=== PATIENT | female | born 1990 | race Caucasian/White ===

== ENCOUNTER 2018-06-12 04:19 | Emergency (ER) | payer OTHER ==
[~2018-06-12] VITALS: Ht 162.6 cm; Wt 86.4 kg
[2018-06-12] MEDS ORDERED: PredniSONE 20 MG TABLET PO ONE (05:00)
[2018-06-12] MEDS ORDERED: DiphenhydrAMINE HCL 25 MG CAPSULE PO ONE (05:00)
[2018-06-12 05:25] VITALS: BP 128/76
== END 2018-06-12 05:44 | disposition home or self-care (01) ==
LOC: EMS 04:20
DX: L50.9 Urticaria, unspecified (principal); F17.210 Nicotine dependence, cigarettes, uncomplicated
CPT/HCPCS: 99283; J7512

== ENCOUNTER 2018-10-07 21:12 | Emergency (ER) | payer OTHER ==
[~2018-10-07] VITALS: Ht 162.6 cm; Wt 79.5 kg
[2018-10-08 01:08] VITALS: BP 131/85
[2018-10-08 01:33] LABS: APPEARANCE,URINE CLEAR (CLEAR); BILIRUBIN,URINE NEGATIVE (NEGATIVE); GLUCOSE, URINE (UA) NEGATIVE (NEGATIVE); KETONES,URINE NEGATIVE (NEGATIVE); LEUKOCYTE ESTERASE ,URINE NEGATIVE (NEGATIVE); NITRATE,URINE NEGATIVE (NEGATIVE); OCCULT BLOOD,URINE NEGATIVE (NEGATIVE); PROTEIN,URINE NEGATIVE (NEGATIVE)
[2018-10-08 02:08] LABS: INFLUENZA TYPE A NEGATIVE FOR TYPE A (NEGATIVE); INFLUENZA TYPE B NEGATIVE FOR TYPE B (NEGATIVE)
[2018-10-08 03:14] LABS: BASOPHILS % (AUTO) 0.8 % (0.0-2.0); EOSINOPHILS % (AUTO) 1.7 % (1.0-6.0); HEMATOCRIT 36.4 % (36-46); LYMPHOCYTES # (AUTO) 2.7 K/uL (1.0-4.8); LYMPHOCYTES % (AUTO) 26.3 % (22.0-44.0); MEAN CORPUSCULAR HEMOGLOBIN 28.3 pg (26.0-34.0); MEAN CORPUSCULAR VOLUME 86 fL (80-100); MONOCYTES # (AUTO) 0.8 K/uL (0.1-1.0); MONOCYTES % (AUTO) 7.9 % (2.0-9.0); NEUTROPHILS # (AUTO) 6.5 K/uL (1.8-7.7); NEUTROPHILS % (AUTO) 63.3 % (40.0-70.0); PLATELET COUNT (AUTO) 229 K/uL (150-450); RED BLOOD CELL COUNT(AUTO) 4.26 MIL/uL (4.00-5.20)
[2018-10-08 03:27] LABS: ANION GAP 9 mmol/L (8-16); CALCIUM, TOTAL 8.8 mg/dL (8.8-10.5); CARBON DIOXIDE 23 mmol/L (22-29); CHLORIDE 104 mmol/L (98-107); CREATININE 0.58 mg/dL (0.60-1.30); GLOMERULAR FILTR. RATE CALC > 60 mL/min (>60); GLUCOSE,RANDOM 91 mg/dL (70-110); SODIUM SERUM 136 mmol/L (136-145); UREA NITROGEN, BLOOD 9 mg/dL (7-18)
[2018-10-08 03:53] LABS: ALANINE AMINOTRANSFERASE 19 U/L (12-78); ALBUMIN 3.3 g/dL (3.4-5.0); ALKALINE PHOSPHATASE 70 U/L (46-116); ASPARTATE AMINOTRANSFERASE 16 U/L (15-37); BILIRUBIN,TOTAL 0.4 mg/dL (0.1-1.0); HCG,QUANTITATIVE 3798 mIU/mL (0-6); LIPASE 109 U/L (73-393); TOTAL PROTEIN, SERUM 7.1 g/dL (6.4-8.2)
== END 2018-10-08 03:45 | disposition home or self-care (01) ==
LOC: EMS 21:13
DX: O99.511 Diseases of the respiratory system complicating pregnancy, first trimester (principal); O99.331 Smoking (tobacco) complicating pregnancy, first trimester; O26.891 Other specified pregnancy related conditions, first trimester; F17.210 Nicotine dependence, cigarettes, uncomplicated; R10.30 Lower abdominal pain, unspecified; Z3A.08 8 weeks gestation of pregnancy
CPT/HCPCS: 76801; 76817; 87804; 99406

== ENCOUNTER 2018-12-23 07:52 | Emergency (ER) | payer OTHER ==
[~2018-12-23] VITALS: Ht 162.6 cm; Wt 80.9 kg
[2018-12-23] MEDS ORDERED: ACET-2247 PO (07:55)
[2018-12-23] MEDS ORDERED: ONDANSETRON HCL 4 MG/2 ML VIAL IVP ONE (08:30)
[2018-12-23] MEDS ORDERED: MAG HYDROX/AL HYDROX/SIMETH ES 30 ML SUSPENSION UDCUP PO ONE (08:30)
[2018-12-23] MEDS ORDERED: SODIUM CHLORIDE 0.9% 1,000 ML IV ONE (08:30)
[2018-12-23 08:51] LABS: BASOPHILS % (AUTO) 0.4 % (0.0-2.0); HEMATOCRIT 35.5 % (36-46); HEMOGLOBIN 11.4 g/dL (12.0-16.0); LYMPHOCYTES # (AUTO) 1.9 K/uL (1.0-4.8); MEAN CORPUSCULAR HEMOGLOBIN 27.7 pg (26.0-34.0); MEAN CORPUSCULAR HGB CONC 32.2 G/dL (31.0-37.0); MEAN CORPUSCULAR VOLUME 86 fL (80-100); MONOCYTES # (AUTO) 0.5 K/uL (0.1-1.0); MONOCYTES % (AUTO) 6.1 % (2.0-9.0); NEUTROPHILS # (AUTO) 6.3 K/uL (1.8-7.7); NEUTROPHILS % (AUTO) 70.5 % (40.0-70.0); PLATELET COUNT (AUTO) 203 K/uL (150-450); RED BLOOD CELL COUNT(AUTO) 4.13 MIL/uL (4.00-5.20); RED CELL DISTRIBUTION WIDTH 13.5 % (11.5-14.5)
[2018-12-23 09:01] LABS: ANION GAP 9 mmol/L (8-16); CALCIUM, TOTAL 8.6 mg/dL (8.8-10.5); CARBON DIOXIDE 24 mmol/L (22-29); CHLORIDE 105 mmol/L (98-107); CREATININE 0.58 mg/dL (0.60-1.30); GLOMERULAR FILTR. RATE CALC > 60 mL/min (>60); GLUCOSE,RANDOM 88 mg/dL (70-110); POTASSIUM 3.9 mmol/L (3.5-5.1); SODIUM SERUM 138 mmol/L (136-145); UREA NITROGEN, BLOOD 7 mg/dL (7-18)
[2018-12-23 09:27] LABS: ALANINE AMINOTRANSFERASE 19 U/L (12-78); ALBUMIN 2.7 g/dL (3.4-5.0); ALKALINE PHOSPHATASE 55 U/L (46-116); ASPARTATE AMINOTRANSFERASE 17 U/L (15-37); BILIRUBIN,TOTAL 0.3 mg/dL (0.1-1.0); HCG,QUANTITATIVE 14957 mIU/mL (0-6); LIPASE 81 U/L (73-393); TOTAL PROTEIN, SERUM 6.5 g/dL (6.4-8.2)
[2018-12-23 09:35] LABS: APPEARANCE,URINE CLOUDY (CLEAR); BILIRUBIN,URINE NEGATIVE (NEGATIVE); GLUCOSE, URINE (UA) NEGATIVE (NEGATIVE); KETONES,URINE NEGATIVE (NEGATIVE); LEUKOCYTE ESTERASE ,URINE TRACE (NEGATIVE); NITRATE,URINE NEGATIVE (NEGATIVE); OCCULT BLOOD,URINE NEGATIVE (NEGATIVE); PH,URINE 7.5 (5.0-8.0); PROTEIN,URINE NEGATIVE (NEGATIVE); UROBILINOGEN,URINE 0.2 mg/dL (<=1.0)
[2018-12-23 10:02] LABS: BACTERIA,URINE None Seen /HPF (None Seen); RBC,URINE None Seen /HPF (0-2); SQUAMOUS EPITHELIAL CELL,UR Few /LPF (None Seen); WBC,URINE 0-2 /HPF (0-5)
[2018-12-23 10:03] LABS: AMORPHOUS SEDIMENT,UR Few /LPF (None Seen)
[2018-12-23 11:54] VITALS: BP 108/73
== END 2018-12-23 12:04 | disposition home or self-care (01) ==
LOC: EMS 08:08
DX: O21.9 Vomiting of pregnancy, unspecified (principal); O99.332 Smoking (tobacco) complicating pregnancy, second trimester; O26.892 Other specified pregnancy related conditions, second trimester; R10.13 Epigastric pain; Z3A.16 16 weeks gestation of pregnancy
CPT/HCPCS: 36415; 76801; 76817; 80053; 81001; 83690; 84702; 85025; 96361; 96374; 99285; J2405; J7030

== ENCOUNTER 2019-01-31 17:58 | Observation (INO) | payer OTHER ==
[~2019-01-31] VITALS: Ht 162.6 cm; Wt 89.0 kg
[~2019-01-31 17:58] MED LIST: ACET-2247 PO
[2019-01-31] MEDS ORDERED: PREN-155 PO (18:16)
[2019-01-31 19:10] VITALS: BP 114/68
[2019-01-31 22:54] LABS: APPEARANCE,URINE CLOUDY (CLEAR); BILIRUBIN,URINE NEGATIVE (NEGATIVE); GLUCOSE, URINE (UA) NEGATIVE (NEGATIVE); KETONES,URINE NEGATIVE (NEGATIVE); LEUKOCYTE ESTERASE ,URINE NEGATIVE (NEGATIVE); NITRATE,URINE NEGATIVE (NEGATIVE); OCCULT BLOOD,URINE NEGATIVE (NEGATIVE); PH,URINE 6.5 (5.0-8.0); PROTEIN,URINE NEGATIVE (NEGATIVE); UROBILINOGEN,URINE 0.2 mg/dL (<=1.0)
[2019-01-31] MEDS ORDERED: SODIUM CHLORIDE 0.9% 1,000 ML IV ONE (23:00)
[2019-01-31] MEDS ORDERED: ONDANSETRON HCL 4 MG/2 ML VIAL IVP ONE (23:00)
[2019-01-31 23:05] LABS: CALCIUM OXALATE CRYSTALS,UR Many /LPF (None Seen); RBC,URINE None Seen /HPF (0-2); SQUAMOUS EPITHELIAL CELL,UR Few /LPF (None Seen)
[2019-01-31 23:06] LABS: WBC,URINE 0-2 /HPF (0-5)
[2019-01-31 23:07] LABS: BACTERIA,URINE Rare /HPF (None Seen)
[2019-01-31 23:25] LABS: BASOPHILS % (AUTO) 0.5 % (0.0-2.0); EOSINOPHILS % (AUTO) 2.1 % (1.0-6.0); HEMOGLOBIN 10.9 g/dL (12.0-16.0); LYMPHOCYTES # (AUTO) 2.3 K/uL (1.0-4.8); LYMPHOCYTES % (AUTO) 22.6 % (22.0-44.0); MEAN CORPUSCULAR HEMOGLOBIN 28.6 pg (26.0-34.0); MEAN CORPUSCULAR VOLUME 87 fL (80-100); MONOCYTES # (AUTO) 0.9 K/uL (0.1-1.0); MONOCYTES % (AUTO) 8.6 % (2.0-9.0); NEUTROPHILS # (AUTO) 6.8 K/uL (1.8-7.7); NEUTROPHILS % (AUTO) 66.2 % (40.0-70.0); PLATELET COUNT (AUTO)-OB 229 K/uL (150-450); RED BLOOD CELL COUNT(AUTO) 3.82 MIL/uL (4.00-5.20); RED CELL DISTRIBUTION WIDTH 14.4 % (11.5-14.5)
[2019-01-31 23:37] LABS: ANION GAP 11 mmol/L (8-16); CALCIUM, TOTAL 9.1 mg/dL (8.8-10.5); CARBON DIOXIDE 25 mmol/L (22-29); CHLORIDE 103 mmol/L (98-107); CREATININE 0.58 mg/dL (0.60-1.30); GLOMERULAR FILTR. RATE CALC > 60 mL/min (>60); GLUCOSE,RANDOM 87 mg/dL (70-110); POTASSIUM 3.4 mmol/L (3.5-5.1); SODIUM SERUM 139 mmol/L (136-145); UREA NITROGEN, BLOOD 9 mg/dL (7-18)
[2019-02-01 00:04] LABS: ALANINE AMINOTRANSFERASE 14 U/L (12-78); ALBUMIN 2.6 g/dL (3.4-5.0); ALKALINE PHOSPHATASE 68 U/L (46-116); ASPARTATE AMINOTRANSFERASE 15 U/L (15-37); BILIRUBIN,TOTAL 0.2 mg/dL (0.1-1.0); HCG,QUANTITATIVE 9452 mIU/mL (0-6); LIPASE 97 U/L (73-393); TOTAL PROTEIN, SERUM 6.8 g/dL (6.4-8.2)
[2019-02-01] MEDS ORDERED: POTASSIUM CHLORIDE 20 MEQ ER TABLET PO ONE (00:15)
[2019-02-01 02:12] VITALS: BP 128/68
== END 2019-01-31 22:15 | disposition home or self-care (01) ==
LOC: EMS 18:00 → 4S 19:15 → INTOOBSV 19:15 → 4S 02-01 02:15
PROVIDERS: ADMIT Obstetrics & Gynecology; ATTEND Obstetrics & Gynecology
DX: O99.612 Diseases of the digestive system complicating pregnancy, second trimester (principal); K52.9 Noninfective gastroenteritis and colitis, unspecified; O99.282 Endocrine, nutritional and metabolic diseases complicating pregnancy, second trimester; E86.0 Dehydration; O21.2 Late vomiting of pregnancy; O26.892 Other specified pregnancy related conditions, second trimester; R19.7 Diarrhea, unspecified; O99.332 Smoking (tobacco) complicating pregnancy, second trimester; Z3A.20 20 weeks gestation of pregnancy
CPT/HCPCS: 76805; 80053; 81001; 83690; 84702; 85025; 86735 ×2; 96374; 99284; G0378; J2405; J7030

== ENCOUNTER 2019-02-24 05:20 | Observation (INO) | payer OTHER ==
[~2019-02-24] VITALS: Ht 162.6 cm; Wt 82.6 kg
[~2019-02-24 05:20] MED LIST changes: +PREN-155 PO
[2019-02-24 06:20] VITALS: BP 109/59
[2019-02-24] MEDS ORDERED: PNV11TAB PO (06:39)
== END 2019-02-24 06:35 | disposition home or self-care (01) ==
LOC: 4S 05:20
PROVIDERS: ADMIT Obstetrics & Gynecology; ATTEND Obstetrics & Gynecology
DX: O26.892 Other specified pregnancy related conditions, second trimester (principal); R10.13 Epigastric pain; O21.2 Late vomiting of pregnancy; O99.89 Other specified diseases and conditions complicating pregnancy, childbirth and the puerperium; M54.9 Dorsalgia, unspecified; Z3A.25 25 weeks gestation of pregnancy
CPT/HCPCS: 80307 ×8; 81002; 87086; G0378

== ENCOUNTER 2019-02-24 08:18 | Observation (INO) | payer OTHER ==
[~2019-02-24] VITALS: Ht 162.6 cm; Wt 84.4 kg
[~2019-02-24 08:18] MED LIST changes: +PNV11TAB PO
[2019-04-09] MEDS ORDERED: ACETAMINOPHEN 500 MG TABLET PO ONE (13:15)
[2019-04-09 13:41] VITALS: BP 113/69
[2019-04-09 16:38] LABS: INFLUENZA TYPE A NEGATIVE FOR TYPE A (NEGATIVE); INFLUENZA TYPE B NEGATIVE FOR TYPE B (NEGATIVE)
[2019-04-09 16:40] LABS: APPEARANCE,URINE CLOUDY (CLEAR); BILIRUBIN,URINE NEGATIVE (NEGATIVE); GLUCOSE, URINE (UA) NEGATIVE (NEGATIVE); KETONES,URINE NEGATIVE (NEGATIVE); LEUKOCYTE ESTERASE ,URINE SMALL (NEGATIVE); NITRATE,URINE NEGATIVE (NEGATIVE); OCCULT BLOOD,URINE NEGATIVE (NEGATIVE); PH,URINE 7.5 (5.0-8.0); PROTEIN,URINE NEGATIVE (NEGATIVE)
[2019-04-09 16:59] LABS: BACTERIA,URINE None Seen /HPF (None Seen); RBC,URINE None Seen /HPF (0-2); WBC,URINE 0-2 /HPF (0-5)
[2019-04-09 17:00] LABS: AMORPHOUS SEDIMENT,UR Moderate /LPF (None Seen); SQUAMOUS EPITHELIAL CELL,UR Few /LPF (None Seen); TRANSITIONAL EPI CELLS,URINE Rare /LPF (None Seen)
== END 2019-04-09 17:15 | disposition home or self-care (01) ==
LOC: 4S 04-09 12:35
PROVIDERS: ADMIT Obstetrics & Gynecology; ATTEND Obstetrics & Gynecology
DX: O26.893 Other specified pregnancy related conditions, third trimester (principal); J11.1 Influenza due to unidentified influenza virus with other respiratory manifestations; R19.7 Diarrhea, unspecified; O21.2 Late vomiting of pregnancy; Z3A.31 31 weeks gestation of pregnancy
CPT/HCPCS: 76811; 80307 ×8; 81001; 87804; G0378

== ENCOUNTER 2020-09-11 17:29 | Emergency (ER) | payer OTHER ==
[~2020-09-11] VITALS: Ht 162.6 cm; Wt 86.4 kg
[2020-09-11] MEDS ORDERED: FLUORESCEIN SODIUM 1 MG STRIP ONE ×2 (17:55→17:56)
[2020-09-11] MEDS ORDERED: PROPARACAINE HCL 0.5% 15 ML OPHTHALMIC SOLUTION OD ONE (18:00)
[2020-09-11] MEDS ORDERED: TOBRAMYCIN/DEXAMETHASONE 5 ML OPHTHALMIC SUSPENSION OD ONE (18:15)
[2020-09-11 19:14] VITALS: BP 122/78
== END 2020-09-11 19:18 | disposition home or self-care (01) ==
LOC: EMS 17:30
DX: S05.01XA Injury of conjunctiva and corneal abrasion without foreign body, right eye, initial encounter (principal); X58.XXXA Exposure to other specified factors, initial encounter; Y93.89 Activity, other specified; Y92.89 Other specified places as the place of occurrence of the external cause; Y99.8 Other external cause status
CPT/HCPCS: 99283

== ENCOUNTER 2022-06-13 19:10 | Emergency (ER) | payer OTHER ==
[~2022-06-13] VITALS: Ht 162.6 cm; Wt 86.4 kg
[2022-06-13 19:54] LABS: COVID AG,FIA SOURCE NASOPHARYNGEAL
[2022-06-13 20:17] LABS: INFLUENZA TYPE B NEGATIVE FOR TYPE B (NEGATIVE)
[2022-06-13 20:23] LABS: INFLUENZA TYPE A POSITIVE FOR TYPE A (NEGATIVE)
[2022-06-13] MEDS ORDERED: IBUPROFEN 600 MG TABLET ONE (20:42)
[2022-06-13] MEDS ORDERED: IBUPROFEN 600 MG TABLET PO ONE (20:45)
[2022-06-13 21:39] VITALS: BP 122/68
[2022-06-13] MEDS ORDERED: IBUP-1554 PO (21:40)
[2022-06-13] MEDS ORDERED: GUAIFDM PO (21:40)
[2022-06-13] MEDS ORDERED: HYDR-4723 PO (21:40)
[2022-06-13] MEDS ORDERED: OSEL75 PO (21:42)
== END 2022-06-13 22:03 | disposition home or self-care (01) ==
LOC: EMS 21:55
DX: J10.1 Influenza due to other identified influenza virus with other respiratory manifestations (principal); Z20.822 Contact with and (suspected) exposure to COVID-19; J20.9 Acute bronchitis, unspecified; R05.9 Cough, unspecified; R50.9 Fever, unspecified; R09.81 Nasal congestion
CPT/HCPCS: 99283; 87426; 87804; C9803

== ENCOUNTER 2023-03-28 15:09 | Emergency (ER) | payer OTHER ==
[~2023-03-28] VITALS: Ht 160 cm; Wt 90.9 kg
[~2023-03-28 15:09] MED LIST changes: -ACET-2247 PO; +GUAIFDM PO; +HYDR-4723 PO; +IBUP-1554 PO; +OSEL75 PO; -PNV11TAB PO; -PREN-155 PO
[2023-03-28 15:44] VITALS: TEMP 99.2
[2023-03-28] MEDS ORDERED: SODIUM CHLORIDE 0.9% 1,000 ML IV ONE (16:15)
[2023-03-28 16:25] LABS: APPEARANCE,URINE HAZY (CLEAR); BILIRUBIN,URINE NEGATIVE (NEGATIVE); COLOR,URINE YELLOW (YELLOW); GLUCOSE, URINE (UA) NEGATIVE (NEGATIVE); KETONES,URINE NEGATIVE (NEGATIVE); LEUKOCYTE ESTERASE ,URINE SMALL (NEGATIVE); NITRATE,URINE NEGATIVE (NEGATIVE); OCCULT BLOOD,URINE NEGATIVE (NEGATIVE); PH,URINE 7.5 (5.0-8.0); PROTEIN,URINE TRACE mg/dL (NEGATIVE); SPECIFIC GRAVITIY, URINE 1.025 (1.003-1.030); UROBILINOGEN,URINE <=1.0 mg/dL (<=1.0)
[2023-03-28 16:36] LABS: BACTERIA,URINE Few /HPF (None Seen); RBC,URINE None Seen /HPF (0-2); SQUAMOUS EPITHELIAL CELL,UR Few /LPF (None Seen); TRIPLE PHOSPHATE CRYSTAL,UR Few /LPF (None Seen); WBC,URINE 0-2 /HPF (0-5)
[2023-03-28 16:44] LABS: BASOPHILS % (AUTO) 0.2 % (0.0-2.0); EOSINOPHILS % (AUTO) 0.7 % (1.0-6.0); HEMATOCRIT 34.6 % (36-46); HEMOGLOBIN 11.5 g/dL (12.0-16.0); LYMPHOCYTES # (AUTO) 1.1 K/uL (1.0-4.8); LYMPHOCYTES % (AUTO) 12.2 % (22.0-44.0); MEAN CORPUSCULAR HEMOGLOBIN 29.1 pg (26.0-34.0); MEAN CORPUSCULAR HGB CONC 33.3 G/dL (31.0-37.0); MEAN CORPUSCULAR VOLUME 88 fL (80-100); MONOCYTES # (AUTO) 0.6 K/uL (0.1-1.0); MONOCYTES % (AUTO) 7.1 % (2.0-9.0); NEUTROPHILS # (AUTO) 6.9 K/uL (1.8-7.7); NEUTROPHILS % (AUTO) 79.8 % (40.0-70.0); PLATELET COUNT (AUTO) 215 K/uL (150-450); RED BLOOD CELL COUNT(AUTO) 3.96 MIL/uL (4.00-5.20); RED CELL DISTRIBUTION WIDTH 13.4 % (11.5-14.5); WHITE BLOOD COUNT (AUTO) 8.7 K/uL (4.5-11.0)
[2023-03-28 17:01] LABS: ANION GAP 9 mmol/L (8-16); CALCIUM, TOTAL 8.5 mg/dL (8.8-10.5); CARBON DIOXIDE 23 mmol/L (22-29); CHLORIDE 104 mmol/L (98-107); CREATININE 0.51 mg/dL (0.60-1.30); GLOMERULAR FILTR. RATE CALC > 60 mL/min (>60); GLUCOSE,RANDOM 81 mg/dL (70-110); POTASSIUM 3.7 mmol/L (3.5-5.1); SODIUM SERUM 136 mmol/L (136-145); UREA NITROGEN, BLOOD 6 mg/dL (7-18)
[2023-03-28 17:27] VITALS: BP 124/71; PULSE 78; RESP 18
[2023-03-28 17:27] LABS: ALANINE AMINOTRANSFERASE 14 U/L (12-78); ALBUMIN 2.9 g/dL (3.4-5.0); ALKALINE PHOSPHATASE 65 U/L (46-116); ASPARTATE AMINOTRANSFERASE 19 U/L (15-37); BILIRUBIN,TOTAL 0.5 mg/dL (0.1-1.0); LIPASE 31 U/L (16-77); TOTAL PROTEIN, SERUM 6.7 g/dL (6.4-8.2)
[2023-03-28] MEDS ORDERED: HYDR30CR3 TP (21:01)
== END 2023-03-28 21:09 | disposition home or self-care (01) ==
LOC: EMS 15:11
DX: O26.892 Other specified pregnancy related conditions, second trimester (principal); E86.0 Dehydration; R19.7 Diarrhea, unspecified; Z3A.15 15 weeks gestation of pregnancy
CPT/HCPCS: 99284; 96360; 76805; 80053; 81001; 83690; 84702; 85025; 36415; J7030

== ENCOUNTER 2024-03-17 01:36 | Emergency (ER) | payer OTHER ==
[~2024-03-17] VITALS: Ht 162.6 cm; Wt 80.0 kg
[~2024-03-17 01:36] MED LIST changes: +HYDR-4062 PO; -HYDR-4723 PO; +HYDR30CR3 TP; -OSEL75 PO; +OSEL75CA45 PO
[2024-03-17] MEDS: KETOROLAC TROMETHAMINE 30 MG/ML VIAL IVP ONE (02:25)
[2024-03-17] MEDS: SODIUM CHLORIDE 0.9% 1,000 ML IV ONE (02:25)
[2024-03-17 02:46] LABS: BASOPHILS % (AUTO) 0.4 % (0.0-2.0); EOSINOPHILS % (AUTO) 0.8 % (1.0-6.0); HEMATOCRIT 39.3 % (36-46); HEMOGLOBIN 12.6 g/dL (12.0-16.0); LYMPHOCYTES # (AUTO) 1.9 K/uL (1.0-4.8); LYMPHOCYTES % (AUTO) 17.5 % (22.0-44.0); MEAN CORPUSCULAR HEMOGLOBIN 28.3 pg (26.0-34.0); MEAN CORPUSCULAR HGB CONC 32.2 G/dL (31.0-37.0); MEAN CORPUSCULAR VOLUME 88 fL (80-100); MONOCYTES # (AUTO) 0.5 K/uL (0.1-1.0); MONOCYTES % (AUTO) 4.4 % (2.0-9.0); NEUTROPHILS # (AUTO) 8.5 K/uL (1.8-7.7); NEUTROPHILS % (AUTO) 76.9 % (40.0-70.0); PLATELET COUNT (AUTO) 233 K/uL (150-450); RED BLOOD CELL COUNT(AUTO) 4.46 MIL/uL (4.00-5.20); RED CELL DISTRIBUTION WIDTH 13.6 % (11.5-14.5); WHITE BLOOD COUNT (AUTO) 11.1 K/uL (4.5-11.0)
[2024-03-17 02:52] LABS: ANION GAP 11 mmol/L (8-16); CALCIUM, TOTAL 8.2 mg/dL (8.8-10.5); CARBON DIOXIDE 22 mmol/L (22-29); CHLORIDE 106 mmol/L (98-107); CREATININE 0.76 mg/dL (0.60-1.30); GLOMERULAR FILTR. RATE CALC > 60 mL/min (>60); GLUCOSE,RANDOM 143 mg/dL (70-110); POTASSIUM 3.9 mmol/L (3.5-5.1); SODIUM SERUM 139 mmol/L (136-145); UREA NITROGEN, BLOOD 14 mg/dL (7-18)
[2024-03-17 02:58] LABS: ALANINE AMINOTRANSFERASE 18 U/L (12-78); ALBUMIN 3.4 g/dL (3.4-5.0); ALKALINE PHOSPHATASE 78 U/L (46-116); ASPARTATE AMINOTRANSFERASE 18 U/L (15-37); BILIRUBIN,TOTAL 0.7 mg/dL (0.1-1.0); LIPASE 45 U/L (16-77); TOTAL PROTEIN, SERUM 6.9 g/dL (6.4-8.2)
[2024-03-17 03:44] LABS: APPEARANCE,URINE CLEAR (CLEAR); BILIRUBIN,URINE NEGATIVE (NEGATIVE); COLOR,URINE LIGHT YELLOW (YELLOW); GLUCOSE, URINE (UA) NEGATIVE (NEGATIVE); KETONES,URINE NEGATIVE (NEGATIVE); LEUKOCYTE ESTERASE ,URINE NEGATIVE (NEGATIVE); NITRATE,URINE NEGATIVE (NEGATIVE); OCCULT BLOOD,URINE MODERATE (NEGATIVE); PROTEIN,URINE NEGATIVE (NEGATIVE); SPECIFIC GRAVITIY, URINE 1.015 (1.003-1.030); UROBILINOGEN,URINE <=1.0 mg/dL (<=1.0)
[2024-03-17] MEDS: HYDROCODONE/ACETAMINOPHEN 5-325 MG TABLET PO ONE (03:51)
[2024-03-17 03:58] LABS: WBC,URINE 0-2 /HPF (0-5)
[2024-03-17 03:59] LABS: BACTERIA,URINE Rare /HPF (None Seen); SQUAMOUS EPITHELIAL CELL,UR Rare /LPF (None Seen)
[2024-03-17] MEDS ORDERED: HYDR-4072 PO (04:19)
[2024-03-17] MEDS ORDERED: OMEP20 PO (04:19)
[2024-03-17] MEDS ORDERED: ONDA-104 PO (04:19)
[2024-03-17] MEDS ORDERED: IBUP-1554 PO (04:19)
[2024-03-17 04:29] VITALS: BP 110/60; PULSE 72; RESP 16; TEMP 98; O2SAT 100
== END 2024-03-17 04:29 | disposition home or self-care (01) ==
LOC: EMS 01:36
DX: R10.84 Generalized abdominal pain (principal)
CPT/HCPCS: 99283; 96374; 96361; 80048; 80076; 81001; 83690; 84703; 85025; 36415; J1885; J7030